=== PATIENT | female | born 1950 | race Caucasian/White ===

== ENCOUNTER 2019-05-06 16:33 | Emergency (ER) | payer MEDICARE ==
[~2019-05-06] VITALS: Ht 160 cm; Wt 63.0 kg
[~2019-05-06 16:33] MED LIST: ALPR-624 PO; ASPI-611 PO; ATEN-169 PO; ATOR20TA PO; CA C1TAB95 PO; CITA-311 PO; ENOX40SY7 SQ; LACT1CAP65 PO; LISI-600 PO; LISI10TA4 PO; MULT-1085 PO; UBID100C16 PO; [UNRECOGNIZED DRUG - OTHER] VG
[2019-05-06] MEDS ORDERED: ondansetron 4mg rapidly disintigrating tab PO ONE (17:25)
[2019-05-06] MEDS ORDERED: HYDROcodone/acetaminophen 5mg/325mg tablet PO ONE ×2 (17:25→19:10)
[2019-05-06] MEDS ORDERED: ondansetron/PF 4mg/2ml inj IV ONE (17:45)
[2019-05-06] MEDS ORDERED: morphine 4 MG/ML inj SYRINge IV ONE (17:45)
[2019-05-06 18:05] VITALS: BP 133/71
[2019-05-06] MEDS ORDERED: TRAM50TA2 PO (18:24)
== END 2019-05-06 19:24 | disposition home or self-care (01) ==
LOC: ER 16:33
DX: S42.291A Other displaced fracture of upper end of right humerus, initial encounter for closed fracture (principal); S92.354A Nondisplaced fracture of fifth metatarsal bone, right foot, initial encounter for closed fracture; E78.00 Pure hypercholesterolemia, unspecified; I10 Essential (primary) hypertension; Z88.2 Allergy status to sulfonamides; Z88.1 Allergy status to other antibiotic agents; Z79.82 Long term (current) use of aspirin; Z79.899 Other long term (current) drug therapy; W18.31XA Fall on same level due to stepping on an object, initial encounter; Y93.89 Activity, other specified; Y92.89 Other specified places as the place of occurrence of the external cause; Y99.8 Other external cause status
CPT/HCPCS: 29105; 71045; 73030; 73630; 96374; 96375; 99284; J2270; J2405

== ENCOUNTER 2019-05-20 10:35 | Emergency (ER) | payer MEDICARE ==
[~2019-05-20] VITALS: Ht 160 cm; Wt 66.5 kg
[~2019-05-20 10:35] MED LIST changes: +TRAM50TA2 PO
[2019-05-20] MEDS ORDERED: HYDROcodone/acetaminophen 5mg/325mg tablet PO ONE ×2 (13:20→14:05)
[2019-05-20] MEDS ORDERED: CEPH-571 PO (14:00)
--- NOTE | 2019-05-20 14:09 | NUR ---
Pt transported to [facility] via w/c with tech.
[2019-05-20] MEDS ORDERED: HYDR-4383 PO (14:57)
[2019-05-20 15:06] VITALS: BP 126/66
== END 2019-05-20 15:08 | disposition home or self-care (01) ==
LOC: ER 10:37
DX: M25.521 Pain in right elbow (principal); E78.00 Pure hypercholesterolemia, unspecified; I10 Essential (primary) hypertension; Z88.2 Allergy status to sulfonamides; Z88.1 Allergy status to other antibiotic agents; Z79.82 Long term (current) use of aspirin; Z88.0 Allergy status to penicillin; Z79.2 Long term (current) use of antibiotics; Z88.8 Allergy status to other drugs, medicaments and biological substances; Z79.899 Other long term (current) drug therapy
CPT/HCPCS: 73060; 73080; 73200; 99284

== ENCOUNTER 2024-04-21 19:02 | Emergency (ER) | payer MEDICARE ==
[~2024-04-21] VITALS: Ht 157.5 cm; Wt 63.6 kg
[~2024-04-21 19:02] MED LIST changes: +CEPH-571 PO; +HYDR-4383 PO; -LISI-600 PO; +LISI10TA27 PO; -LISI10TA4 PO; +LISI20TA28 PO; -TRAM50TA2 PO
[2024-04-21 19:03] VITALS: BP 141/66; PULSE 69; RESP 18; TEMP 97.4; O2SAT 98
== END 2024-04-21 20:10 ==
LOC: ER 19:02
DX: Z04.1 Encounter for examination and observation following transport accident (principal); E78.00 Pure hypercholesterolemia, unspecified; I10 Essential (primary) hypertension; Z88.2 Allergy status to sulfonamides; Z88.1 Allergy status to other antibiotic agents; Z79.899 Other long term (current) drug therapy; Z79.82 Long term (current) use of aspirin; V89.2XXA Person injured in unspecified motor-vehicle accident, traffic, initial encounter
CPT/HCPCS: 99283